=== PATIENT | male | born 2000 | race Asian ===

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

== ENCOUNTER 2019-07-08 19:14 | Emergency (ER) | payer OTHER ==
[2019-07-08 21:26] VITALS: BP 141/77
== END 2019-07-08 22:40 | disposition left against medical advice (07) ==
LOC: ED 19:14
DX: J10.1 Influenza due to other identified influenza virus with other respiratory manifestations (principal); Z53.21 Procedure and treatment not carried out due to patient leaving prior to being seen by health care provider
CPT/HCPCS: 99281

== ENCOUNTER 2019-07-11 22:07 | Emergency (ER) | payer OTHER ==
--- NOTE | 2019-07-11 23:46 | ED ---
Respiratory - HPI Summary HPI Summary: Patient is a 19 y/o M w/ Hx of asthma as a child who presents to ED with complaints of cough and SOB. He states that he has had a cough productive of clear phlegm for the past 2-3 days. He states that he started taking antibiotics that were given to him by his PCP when he was in [facility]. Patient reports that his cough has worsened over the past few days. He states that he feels SOB with his cough. Patient reports he has had a sore throat as well as a low fever around 3-4 days ago. Patient states that he experiences similar Sx when the changes climates, noting that he is used to humid climates such as [facility]. Sx are reported to be worse at night as well. FMHx of diabetes is noted. On triage, pain is denied, nothing is noted to aggravate/alleviate Sx. Home medications and allergies are reviewed. - History of Current Complaint Chief Complaint: EDUpperRespComplaint Stated Complaint: COUGH PER PT Time Seen by Provider: 07/11/19 23:44 Hx Obtained From: Patient Onset/Duration: Lasting Weeks, Still Present, Worse Since Current Severity: None Pain Intensity: 0 Character: Cough (Productive) Sputum Color: Clear Aggravating Factor(s): Weather Change, Other - night time Alleviating Factor(s): Nothing Associated Signs and Symptoms: Fever - reported, on vitals, temp is 97.2 F, SOB - Allergy/Home Medications Allergies/Adverse Reactions: Allergies Allergy/AdvReac Type Severity Reaction Status Date / Time No Known Allergies Allergy Verified 12/21/18 22:39 PMH/Surg Hx/FS Hx/Imm Hx Respiratory History: Reports: Hx Asthma Sensory History: Denies: Hx Legally Blind, Hx Deafness, Hx Hearing Aid Opthamlomology History: Denies: Hx Legally Blind - Immunization History Date of Tetanus Vaccine: utd Date of Influenza Vaccine: none Infectious Disease History: No Infectious Disease History: Denies: Traveled Outside the [place] in Last 30 Days - Family History Known Family History: Positive: Diabetes - Social History Alcohol Use: None Substance Use Type: Reports: None Smoking Status (MU): Never Smoked Tobacco Review of Systems Positive: Fever - reported, on vitals, temp is 97.2 F Positive: Sore Throat Positive: Shortness Of Breath, Cough All Other Systems Reviewed And Are Negative: Yes Physical Exam - Summary Physical Exam Summary: Appearance: Well-appearing, Well-nourished, lying in bed comfortably Skin: Warm, dry, no obvious rash Eyes: sclera anicteric, no conjunctival pallor ENT: mucous membranes moist, pharynx appears normal Neck: Supple, nontender Respiratory: Clear to auscultation, no signs of respiratory distress, no definite wheezing, good aeration, patient breaks out to paroxysms of cough with deep breaths. Cardiovascular: Normal S1, S2. No murmurs. Normal distal pulses in tibial and radial bilaterally. Abdomen: Soft, nontender, normal active bowel sounds present Musculoskeletal: Normal, Strength/ROM Intact Neurological: A&Ox3, awake and alert, mentation is normal, speech is fluent and appropriate Psychiatric: affect is normal, does not appear anxious or depressed Triage Information Reviewed: Yes Vital Signs On Initial Exam: Initial Vitals Temp Pulse Resp BP Pulse Ox 97.2 F 99 18 140/95 97 07/11/19 22:08 07/11/19 22:08 07/11/19 22:08 07/11/19 22:08 07/11/19 22:08 Vital Signs Reviewed: Yes Diagnostics - Vital Signs Vital Signs Temp Pulse Resp BP Pulse Ox 07/11/19 22:08 97.2 F 99 18 140/95 97 - Laboratory Lab Statement: Any lab studies that have been ordered have been reviewed, and results considered in the medical decision making process. Disposition - Course Course Of Treatment: Patient is a 19 y/o M w/ Hx of asthma as a child who presents to ED with complaints of cough and SOB. He states that he has had a cough productive of clear phlegm for the past 2-3 days. He states that he started taking antibiotics that were given to him by his PCP when he was in [facility]. Patient reports that his cough has worsened over the past few days. He states that he feels SOB with his cough. Patient reports he has had a sore throat as well as a low fever around 3-4 days ago. Patient states that he experiences similar Sx when the changes climates, noting that he is used to humid climates such as [facility]. Sx are reported to be worse at night as well. On physical exam, patient's lungs are clear to auscultation, no signs of respiratory distress, no definite wheezing, good aeration, patient breaks out to paroxysms of cough with deep breaths. Patient was given prednisone 40 mg PO and albuterol 2.5 mg INH. His Sx are improved after medications, he is discharged to home. Patient was prescribed prednisone and will follow up with PCP within four days. - Diagnoses Provider Diagnoses: Asthma exacerbation Discharge ED - Sign-Out/Discharge Documenting (check all that apply): Patient Departure - discharge Patient Received Moderate/Deep Sedation with Procedure: No - Discharge Plan Condition: Improved Disposition: HOME Prescriptions: predniSONE TAB* [Deltasone 20 MG TAB*] 40 mg PO DAILY 5 Days #10 tab Patient Education Materials: Asthma (ED) Referrals: [facility] [Outside] - 3 Days (if not better) Additional Instructions: Use the inhaler every 4 hrs as needed for cough and shortness of breath. The steroid medication should kick in overnight. - Billing Disposition and Condition Condition: IMPROVED Disposition: Home - Attestation Statements Document Initiated by Chandler: Yes Documenting Scribe: KAVON SCHMITZ Provider For Whom Chandler is Documenting (Include Credential): HALLIE TAVARES MD Scribe Attestation: KAVON Sparks, scribed for HALLIE TAVARES MD on 07/12/19 at 0639. Scribe Documentation Reviewed: Yes Provider Attestation: The documentation as recorded by the KAVON schaefer accurately reflects the service I personally performed and the decisions made by HALLIE dickerson MD Status of Scribsalomón Document: Viewed
[2019-07-11] MEDS ORDERED: Albuterol 2.5 MG/3 ML NEB.SOL* (0.083%) INH ONE (23:50)
[2019-07-11] MEDS ORDERED: predniSONE TAB* 20 MG PO ONE (23:50)
[2019-07-12] MEDS ORDERED: Albuterol HFA INHALER* 8 gm MDI INH ONE (00:51)
[2019-07-12 00:58] VITALS: BP 136/85
[2019-07-12] MEDS ORDERED: Albuterol HFA INHALER* 8 gm MDI INH SCH (01:00)
== END 2019-07-12 00:57 | disposition home or self-care (01) ==
LOC: ED 22:07
DX: J45.901 Unspecified asthma with (acute) exacerbation (principal); R05 Cough; R06.02 Shortness of breath; R50.9 Fever, unspecified
CPT/HCPCS: 99283; A9270-GY; J7512